=== PATIENT | male | born 2000 ===

== ENCOUNTER 2023-01-16 08:52 | Emergency (ER) | payer MEDICAID, SELFPAY ==
[2023-01-16 09:06] VITALS: BP 158/86; PULSE 109; RESP 18; TEMP 36.9; O2SAT 97; BMI 28.1
[2023-01-16 10:17] VITALS: BP 136/78; PULSE 84; RESP 18; TEMP 36.6; O2SAT 99
--- OUTSIDE RECORDS SUMMARY | 2023-01-16 10:35 | XMS_ITS | Continuity of Care Document ---
Author Name Unknown Organization [facility] ter Address [address] [place] [id number]- Care Team Providers Care Movement Education Specialist Name Role Phone Ha Holbrook MD Primary Care Physician [phone] Encounter [facility] Date(s): 02/18/20 - 02/18/[address] [address]- [facility] Discharge Disposition: A-D/C Home Attending Physician: Ha Holbrook MD Admitting Physician: Ha Holbrook MD Referring Physician: Ha Holbrook MD Allergies, Adverse Reactions, Alerts Substance Reaction Severity Status shellfish rash Active Peanuts rash Active Other Food Allergy tree nuts - rash Activ e Medications Keflex monohydrate 500 mg oral capsule 1 capsule = 500 mg, By Mouth, 4 times a day, # 28 capsule, 0 Refills, Maintenance, 01/16/18 11:28:50 EDT, Capsule Start Date: 01/16/18 Stop Date: 01/23/18 Status: Ordered traMADol 50 mg oral tablet 1 tablet = 50 mg, By Mouth, Every 4 hours, PRN as needed for pain, 0 Refills, Maintenance, 01/16/1811:28:36 EDT, Tablet Start Date: 01/16/18 Status: Ordered
[2023-01-16 11:08] LABS: Appearance Urine Clear; Color Urine Yellow; Glucose Urine UA Negative (Negative); Leukocyte Esterase Urine Negative (Negative); Nitrite Urine Negative (Negative); PH 6.5 (5.0-9.0); Specific Gravity - Urine 1.015 (1.005-1.025); Urine Blood Negative (Negative); Urine Ketones Negative (Negative); Urine Protein Negative (Neg-Trace)
--- NOTE | 2023-01-16 11:10 | ED_ITS ---
HPI - Male Genitourinary General Chief complaint: Urogenital-Male Stated complaint: not urinating properly Time Seen by Provider: 01/16/23 10:36 Source: patient Mode of arrival: ambulatory Limitations: no limitations History of Present Illness HPI Narrative: 22-year-old male with no significant past medical history presents to the ER for evaluation of acute on chronic difficulty urinating. He states for the last 2 years he has had difficulty initiating his urine stream with a feeling of incomplete emptying of his bladder. He reports seeing his PCP for routine UA and lab work in 2020 which was unremarkable. Since then, he's had increased difficulty and frequency of urination, along with occasional rectal pain. Denies dysuria, hematuria, fever, chills, constipation, diarrhea, brbpr, N/V, flank or abdominal pain. Denies concern for STIs. MD Complaint: other Onset (ago): year(s) (2) Duration: progressively worsening Relieving factors: none Exacerbating factors: none Associated symptoms: Reports denies other symptoms Related Data Previous Rx's Medication Instructions Recorded tamsulosin 0.4 mg capsule (Flomax) 0.4 mg PO DAILY #30 caps 01/16/23 Allergies Allergy/AdvReac Type Severity Reaction Status Date / Time peanut [PEANUT] Allergy Severe RASH, SOB Verified 01/16/23 09:13 Review of Systems Review of Systems: Yes all other systems are reviewed and are negative PMFSH Past Medical History Attestation statement: The following information was validated with the patient. Source: nursing notes reviewed Social History Social History Alcohol intake: never Smoked in Last 30 Days: No Use of substances other than those prescribed or required for medical reasons: No Advance Directives: No Advance Directives Information Provided: No Physical Exam Vital Signs: Vital Signs: Last Vital Signs Temp 98 F 01/16/23 10:17 Pulse 84 01/16/23 10:17 Resp 18 01/16/23 10:17 BP 136/78 01/16/23 10:17 Pulse Ox 99 01/16/23 10:17 O2 Del Method Room Air 01/16/23 10:17 BMI result Body Mass Index 28.1 Vital signs stable Appearance: Alert. Oriented X3. No acute distress. Head: normocephalic, atraumatic. Neck: Normal inspection. Neck supple. CVS: Normal heart rate and rhythm. Pulses normal. Respiratory: No respiratory distress. Breath sounds normal. Abdomen: Soft and nontender. +BS x4 Prostate: deferred (patient declined) Skin: Skin warm and dry. Normal skin color. Normal skin turgor. No rashes. Extremities: No lower extremity edema. No joint swelling. Neuro/psych: Oriented X 3. Medical Decision Making Medical Decision Making [facility] Narrative: 22 year old male with no significant past medical history presenting with increased difficulty initiating urination, frequency of urination, and rectal pain x2 years. Patient is nontoxic appearing with stable vital signs. Physical exam is unremarkable and patient chose to defer prostate/ rectal exam for outpatient followup. [place]ern for possible prostate pathology vs UTI vs nephrolithiasis. Patient's urine is negative for infection. Post void residual is notable for 100cc. Patient declines a rectal exam at this time for evaluation of prostate. Discussed following up with urology outpatient for deferred prostate exam and further work up. Will send flomax to patient's pharmacy for treatment until he sees urologist. Provided patient with urology referral. Patient expresses understanding of this plan and is in agreement. Patient is stable for discharge at this time. Differential Diagnosis Differential Diagnoses: The differential diagnosis associated with the presentation includes STI, UTI, BPH, nephrolithiasis, urinary retention Lab Data [facility] Lab Attestation statement: I reviewed the patient's lab results. Negative for infection. Labs: Lab Results 01/16/23 Range/Units 11:00 Urine Color Yellow Urine Appearance Clear Urine pH 6.5 (5.0-9.0) Ur Specific [place] 1.015 (1.005-1.025) Urine Protein Negative (Neg-Trace) mg/dL Urine Glucose (UA) Negative (Negative) mg/dL Urine Ketones Negative (Negative) mg/dL Urine Blood Negative (Negative) Urine Nitrite Negative (Negative) Ur Leukocyte Esterase Negative (Negative) Prescription Management I considered prescription management with: Other (flomax) Critical Care Time Critical Care Time Critical Care Time: No Discharge Plan Discharge Clinical Impression: Urinary retention, Difficulty urinating Patient Disposition: Home, Self-Care Instructions: Urinary Retention in Men (ED), Urinary Urgency and Frequency (DC) Additional Instructions: Your urine results were normal. Your bladder scan showed some retention if urine in your bladder which requires further outpatient work up. You chose to defer rectal examination of your prostate at this time. Follow-up with urologist outpatient for further workup. Referral given. A month's prescription of flomax has been sent to your pharmacy to help with urination. Take this as prescribed until follow up with urology. Return to the ED if symptoms worsen. Prescriptions: New tamsulosin [Flomax] 0.4 mg capsule 0.4 mg PO DAILY Qty: 30 0RF Referrals: Tico Gray MD [Physician] - (Urinary retention, difficulty initiating urinary stream, worsening x2 years, no UTI) Interventions: ED Discharge Assessment Last Done: 01/16/23 12:16 Discharge Date/Time: 01/16/23 12:17
== END 2023-01-16 12:17 | disposition home or self-care (01) ==
PROVIDERS: Emergency Provider Student in an Organized Health Care Education/Training Program
DX: R33.9 Retention of urine, unspecified (principal); R39.15 Urgency of urination
CPT/HCPCS: 51798; 81003; 99283; 99284